=== PATIENT | female | born 1965 | race Caucasian/White ===

== ENCOUNTER → 2021-07-10 10:06 | Outpatient (BNVA) | payer OTHER, SELFPAY | PROVIDERS: Visit Provider Nurse Practitioner Family | DX: M96.1 Postlaminectomy syndrome, not elsewhere classified (principal); M25.562 Pain in left knee; M25.561 Pain in right knee; M47.27 Other spondylosis with radiculopathy, lumbosacral region; M79.7 Fibromyalgia; M53.3 Sacrococcygeal disorders, not elsewhere classified; Z83.3 Family history of diabetes mellitus; Z82.49 Family history of ischemic heart disease and other diseases of the circulatory system; Z88.6 Allergy status to analgesic agent; Z91.012 Allergy to eggs | CPT/HCPCS: 99202 ==

== ENCOUNTER → 2021-08-07 10:29 | Outpatient (BNVA) | payer OTHER, SELFPAY | PROVIDERS: PCP Internal Medicine; Visit Provider Nurse Practitioner Family | DX: M96.1 Postlaminectomy syndrome, not elsewhere classified (principal); M25.569 Pain in unspecified knee; M47.27 Other spondylosis with radiculopathy, lumbosacral region; M53.3 Sacrococcygeal disorders, not elsewhere classified | CPT/HCPCS: 99212 ==

== ENCOUNTER 2022-08-09 12:09 | Emergency (ER) | payer OTHER, SELFPAY ==
--- NOTE | ~2022-08-09 | CT_ITS ---
EXAMINATION: CT PELVIS WITH CONTRAST CLINICAL INFORMATION: Left buttock mass COMPARISON: Previous CT of the abdomen and pelvis February 2019 TECHNIQUE: Helical scanning was performed with submillimeter collimation through the pelvis with the use of oral contrast and during bolus intravenous injection of 85 mL of Omnipaque 350 intravenous contrast. Sagittal and coronal multiplanar 2-D reconstructions were obtained. This CT examination was performed using dose optimization techniques as appropriate, variously including the following: *Automated exposure control *Adjustment of mA and/or kV according to patient size (this includes techniques or standardized protocols for targeted exams where dose is matched to indication/reason for exam; i.e. extremities or head) *Use of iterative reconstruction technique DLP: 331 mGy-cm FINDINGS: PELVIS: There is a superficial 6 cm fluid collection in the left buttock containing a small amount of air. There are adjacent surgical clips and postsurgical changes to the left buttock. There is stranding of the surrounding fat. This is a new finding from 2019 exam. Visualized small and large bowel is normal. The appendix is normal. The bladder is not optimally distended. Uterus appears to have been removed. No pelvic mass. No ascites or adenopathy. Vascular structures are normal. No hernia. Postsurgical changes to the anterior abdominal wall. OSSEOUS STRUCTURES: There are postsurgical changes following vertebral body and posterior element fusion at L5-S1. There is degenerative disc disease at L4-L5. There are degenerative changes at the hip joints. No fracture or bone lesion. CT/CT pelvis w IV con IMPRESSION: Superficial 6 cm complex cystic lesion in the left buttock. This contains a small amount of air. Differential would include abscess or liquefying hematoma and postsurgical change.
[2022-08-09 12:28] VITALS: BP 144/90; PULSE 111; RESP 18; TEMP 36.7; O2SAT 98; BMI 37.1
--- NOTE | 2022-08-09 12:35 | ED.GENADULT ---
HPI - General Adult General Chief complaint: General Medical Stated complaint: mass on L cheek. burning, pain Time Seen by Provider: 08/09/22 12:34 Source: patient Mode of arrival: ambulatory Limitations: no limitations History of Present Illness HPI narrative: 57-year-old female who presents emergency department for evaluation of left buttocks pain and swelling. Patient states that July 17 she had a lump on her right medial calf and also had a lump in her left buttocks area. She denies any injury or trauma. She states that the bump on her calf resolved and got smaller but the bump on her left hip has gotten larger and more painful. She states that she has had occasional fever and chills. She denied sore throat, cough, chest pain, shortness of breath, nausea, vomiting, myalgias, arthralgias or weakness. The patient states that she has had no procedures or surgeries on her hip however she did have a gastric bypass surgery and liposuction/abdominal plasty.. Related Data Home Medications Medication Instructions Recorded Confirmed acetaminophen 500 mg tablet 500 mg PO Q6H PRN 07/10/21 08/07/21 alprazolam 1 mg tablet (Xanax) 1 mg PO TID PRN 07/10/21 08/07/21 citalopram 40 mg tablet 40 mg PO DAILY 07/10/21 08/07/21 cyanocobalamin (vitamin B-12) 50 50 mcg PO DAILY 07/10/21 08/07/21 mcg tablet dicyclomine 20 mg tablet 20 mg PO ONCE 07/10/21 08/07/21 famotidine 40 mg tablet 40 mg PO DAILY 07/10/21 08/07/21 hydroxyzine pamoate 50 mg capsule 50 mg PO BEDTIME 07/10/21 08/07/21 levothyroxine 88 mcg tablet 88 mcg PO DAILY 07/10/21 08/07/21 loperamide 2 mg capsule 4 mg PO Q6H PRN 07/10/21 08/07/21 montelukast 10 mg tablet 10 mg PO BEDTIME 07/10/21 08/07/21 multivitamin 1 tab PO DAILY 07/10/21 08/07/21 ondansetron HCl 4 mg tablet 4 mg PO Q6H 07/10/21 08/07/21 tizanidine 4 mg tablet 4 mg PO BEDTIME PRN 07/10/21 08/07/21 topiramate 100 mg tablet 100 mg PO DAILY 07/10/21 08/07/21 trazodone 50 mg tablet 100 mg PO DAILY PRN 07/10/21 08/07/21 Previous Rx's Medication Instructions Recorded cephalexin 500 mg capsule 500 mg PO QID 7 days #28 caps 08/09/22 doxycycline hyclate 100 mg tablet 100 mg PO Q12H 7 days #14 tabs 08/09/22 oxycodone 5 mg tablet 5 mg PO Q6H PRN pain #14 tabs 08/09/22 Allergies Allergy/AdvReac Type Severity Reaction Status Date / Time egg [EGG] Allergy Unknown HIVES/ITCHI Verified 08/07/21 10:36 NG morphine [MORPHINE] Allergy Unknown SKIN RED Verified 08/07/21 10:36 Morphine Sulfate Allergy Unknown unk Uncoded 08/07/21 10:36 Tramadol HCl Allergy Unknown unk Uncoded 08/07/21 10:36 Review of Systems Review of Systems: Yes all other systems are reviewed and are negative [facility] Past Medical History [facility] Narrative: Social history: She denies tobacco, alcohol and drug use. Surgical History (Updated 07/10/21 @ 10:17 by HAZEL Fitzgerald) History of abdominoplasty History of back surgery History of left cataract surgery History of partial hysterectomy History of right cataract surgery Hx of cholecystectomy Hx of gastric bypass Family History Family History (Updated 07/10/21 @ 10:20 by HAZEL Fitzgerald) Mother Diabetes Asthma Hypertension Glaucoma Heart problem Father Liver cirrhosis Social History Social History (Updated 07/10/21 @ 10:21 by HAZEL Fitzgerald) Household Members: Children Household Members Other:: 2 sons Alcohol intake: never Patient Tobacco Use Status: Never used Tobacco Advance Directives: No Advance Directives Information Provided: No Patient : No Physical Exam ED Vital Signs: Vital Signs - 24 hr 08/09/22 12:28 08/09/22 16:54 Temperature 98.1 F 98.2 F Pulse Rate 111 H 85 Respiratory Rate 18 20 Blood Pressure 144/90 H 99/61 Pulse Oximetry 98 98 Oxygen Delivery Method Room Air Room Air BMI result Body Mass Index 37.1 Const General: cooperative and no acute distress Orientation/consciousness: oriented to person and oriented to place Limitations: no limitations HENMT Head: Yes normal to inspection, Yes normocephalic and Yes atraumatic Ears: external ears normal General nose exam: Normal external nose present Face and sinus: Yes normal facial exam Mouth: Normal oral and palatal mucosa present Throat: Yes posterior oropharynx normal Eyes General: appearance normal, both eyes and all related structures Pupils: Equal, round and reactive pupils present Neck Neck: Yes normal visual inspection, Yes no lymphadenopathy, Yes trachea midline and Yes supple Chest Chest palpation & inspection: normal inspection of the chest and normal palpation of entire chest wall Resp Effort & Inspection: normal respiratory effort and able to speak in complete sentences Auscultation: clear to auscultation bilaterally Cardio Rate: regular rate Rhythm: regular rhythm Heart sounds: S1 normal heart sound present, S2 normal heart sound present and no murmurs GI Inspection: Yes normal to inspection Palpation (GI): Soft to palpation, nontender and no guarding Auscultation: normal bowel sounds General: Yes no CVA tenderness Back/Spine/Pelvis Back: no CVA tenderness Skin General skin exam: no rashes or lesions noted Neuro General: oriented to person and oriented to place Cranial nerves: Yes CN's II-XII intact bilaterally and Yes Equal, round and reactive pupils present Cognition (Neuro): normal cognition Motor exam (neuro): 5/5 motor strength present throughout Extrem Other: Patient's left lateral hip area revealed a 7 x 5 cm mass which was tender to palpation, the mass feels like a lipoma, there is no induration or flocculence, but overlying skin is normal in appearance with no erythema or increased warmth. Psych Appearance: grossly normal Speech and movement: Normal speech and movement present Affect: normal affect Attitude: cooperative Thought process: Normal thought process present Thought content: Normal thought content present Course Course Course Narrative: 55-year-old female who presents emergency department for evaluation of painful left buttocks/lateral hip mass which she 1st noticed on 07/17/2022, approximately 3 weeks prior to evaluation. She had no trauma or surgical procedure to this area. She states she has had subjective fever and chills but otherwise had no other systemic symptoms. Patient's laboratory evaluate revealed a normal WBC [address] scan of the pelvis with IV contrast radiology reading as follows: IMPRESSION: Superficial 6 cm complex cystic lesion in the left buttock. This contains a small amount of air. Differential would include abscess or liquefying hematoma and postsurgical change. Dictated By:Brynn Ortiz MDSigned By:<Electronically signed by Brynn Ortiz MD in OV>08/09/22 [id number] I did discuss this reading with the covering surgeon, Dr. Hyman. He felt that this was most likely a hematoma and recommended that we try to drain some fluid from the mass. I was able to get approximately 15 cc of hemorrhagic fluid which was sent for Gram stain and culture. The patient will be started on doxycycline and Keflex and also advised to take Tylenol for pain. He was prescribed oxycodone as well for pain not relieved by Tylenol. Patient was advised to contact Dr. Hyman was office for follow-up next week. Medications Administered Discontinued Medications Generic Name Dose Route Start Last Admin Trade Name Freq PRN Reason Stop Dose Admin Hydromorphone HCl 0.5 mg 08/09/22 16:42 08/09/22 16:57 Hydromorphone Hcl 0.5 Mg/0.5 Ml Syringe IVPUSH 08/09/22 16:43 0.5 mg ONCE ONE Administration Protocol Sodium Chloride 1,000 mls @ 999 mls/hr 08/09/22 13:10 08/09/22 16:50 Ns IV 08/09/22 14:10 Infused .Q1H1M STA Infusion Iohexol 100 ml 08/09/22 14:05 08/09/22 14:06 Iohexol 350 Mg/Ml 100 Ml Infus..Btl IV 08/09/22 14:06 85 ml ONCE ONE Administration Ketorolac Tromethamine 30 mg 08/09/22 13:10 08/09/22 13:22 Ketorolac Tromethamine 15 Mg/Ml Vial IVPUSH 08/09/22 13:11 30 mg ONCE STA Administration Procedures Procedure Narrative Procedure Narrative: Needle aspiration of left hip/buttocks mass: I did discuss the procedure with the patient and she did give me informed verbal consent to proceed. The patient's left hip was prepped with Betadine, the that was located using ultrasound, the mass is approximately 2 cm deep. Patient's skin was anesthetized with 1% lidocaine with epinephrine, 4 cc was used Using an 18 gauge spinal needle I was able to easily enter the mass and withdrew 15 cc hemorrhagic fluid. This was the maximum amount but was able to be extracted. The needle was withdrawn and the puncture site was covered with a bandage. Patient tolerated the procedure well. Medical Decision Making Medical Decision Making Differential Diagnoses: Differential diagnosis (Abscess, hematoma, lipoma, lymphoma, neoplasm) Consideration of admission/observation: Consideration of Admission/Observation (Yes) Discussion of management with other physician/healthcare provider/other source (e.g., hospitalist, architectural sales consultant, behavioral health): Discussion w/other physician/healthcare provider (Dr. Hyman, covering surgeon) My interpretation is Lab Attestation: I reviewed the patient's lab results. (Please see course discussion) Non-ED record review: Review of External (Non-ED) Record ([place] database reviewed) Discharge Plan Discharge Clinical Impression: Hematoma Patient Disposition: Home, Self-Care Additional Instructions: The CT scan of your left pelvis/hip did reveal a complex mass which had fluid, air and complex material in it. I was able to aspirate blood suggested that this may be a hematoma. The fluid that I pulled out of the mass was sent for culture to see if we can grow any bacteria out of this mass. Take Tylenol (acetaminophen) 500 mg pills, 2 pills every 4-6 hours as needed for pain. For pain not relieved byr Tylenol take oxycodone 5 mg pills, 1 pill every 4 hours as needed for pain. Do not drive or work while taking this medication since they can cause sleepiness. Oxycodone is a narcotic medication that can be addicting. If you are concerned about addiction you can ask the pharmacist for less pills or do not get this prescription filled. Take doxycycline 100 mg, 1 pill every 12 hours for 7 days Take Keflex (cephalexin) 500 mg pills, 1 pill 3 times a day for 7 days. Follow-up with our surgeon on-call, Dr. Hyman. Call his office on Thursday morning, he should see you next week for re-evaluation. Please return to the emergency department if your symptoms get worse or if you develop any symptoms that are concerning to you. Prescriptions: New cephalexin 500 mg capsule 500 mg PO QID 7 Days Qty: 28 0RF doxycycline hyclate 100 mg tablet 100 mg PO Q12H 7 Days Qty: 14 0RF oxycodone 5 mg tablet 5 mg PO Q6H PRN (Reason: pain) Qty: 14 0RF Rx Instructions: Patient may request partial refill; Partial Fill upon patient request. No Action acetaminophen 500 mg tablet 500 mg PO Q6H PRN Rx Instructions: take 2 tabs by mouth every 6 hours as needed for pain citalopram 40 mg tablet 40 mg PO DAILY cyanocobalamin (vitamin B-12) 50 mcg tablet 50 mcg PO DAILY multivitamin Tablet 1 tab PO DAILY dicyclomine 20 mg tablet 20 mg PO ONCE famotidine 40 mg tablet 40 mg PO DAILY hydroxyzine pamoate 50 mg capsule 50 mg PO BEDTIME levothyroxine 88 mcg tablet 88 mcg PO DAILY loperamide 2 mg capsule 4 mg PO Q6H PRN montelukast 10 mg tablet 10 mg PO BEDTIME ondansetron HCl 4 mg tablet 4 mg PO Q6H tizanidine 4 mg tablet 4 mg PO BEDTIME PRN topiramate 100 mg tablet 100 mg PO DAILY trazodone 50 mg tablet 100 mg PO DAILY PRN alprazolam [Xanax] 1 mg tablet 1 mg PO TID PRN Referrals: Rogerio Rivera MD [Emergency Provider] - Filipe Hyman MD [Physician] - 5 days (Left hip/buttocks complex mass, most likely hematoma. Needle aspiration of hemorrhagic fluid sent for Gram stain and culture. Needs follow-up to determine if this complex mass needs further surgical treatment.)
[2022-08-09] MEDS: 0.9 % Sodium Chloride 1,000 ML 999 ML IV (13:22)
[2022-08-09] MEDS: Ketorolac Tromethamine 15 MG/ML VIAL 30 MG IVPUSH (13:22)
[2022-08-09 13:27] LABS: MANUAL DIFF FLAG NO
[2022-08-09 13:29] LABS: Basophils Percent Auto 0.3 % (0-2); Eosinophils Absolute Auto 0.1 X10*3/uL (0.0-0.4); Eosinophils Percent Auto 1.5 % (0-4); Hematocrit 35.7 % (37.0-47.0); Hemoglobin 11.9 g/dl (12.0-16.0); Imm Gran Abs Auto 0.02 X10*3/uL (0.00-0.03); Imm Gran Pct Auto 0.3 % (0.0-0.4); Lymphocytes Absolute Auto 1.5 X10*3/uL (1.2-4.9); Lymphocytes Percent Auto 19.3 % (20-40); Mean Corpuscular HGB Conc 33.3 g/dl (31.0-35.0); Mean Corpuscular Hemoglobin 28.7 pg (27.0-33.0); Mean Platelet Volume 10.1 fL (9.4-12.3); Monocytes Absolute Auto 0.6 X10*3/uL (0.1-1.2); Monocytes Percent Auto 8.1 % (2-11); Neutrophils Absolute Auto 5.6 x10*3/uL (2.0-8.3); Neutrophils Percent Auto 70.5 % (45-73); Platelet Count 188 X10*3/uL (160-400); Red Blood Count 4.15 X10*6/uL (4.20-5.50); Red Cell Distribution Width 12.9 % (11.0-16.0); White Blood Count 7.9 X10*3/uL (4.8-10.8)
[2022-08-09 13:40] LABS: INTERNATIONAL NORM RATIO 1.2 (0.9-1.1); Prothrombin Time 13.5 SEC (10.0-13.1)
[2022-08-09 13:42] LABS: Alanine Aminotransferase < 6 U/L (0-31); Alkaline Phosphatase 153 U/L (39-117); Anion Gap 15 (12-20); Aspartate Amino Transferase 9 U/L (5-31); Bilirubin Total 0.5 mg/dL (0.0-1.0); Blood Urea Nitrogen 15 mg/dL (9-16); Carbon Dioxide 21 mmol/L (22-29); Chloride 107 mmol/L (96-108); Creatinine Clr Calc Pharmacy 43.9; Estimated Glomerular Filt Rate 42; Glucose Random 130 mg/dL (60-115); Potassium 3.7 mmol/L (3.3-5.1); Sodium 139 mmol/L (135-145); Total Protein 7.5 g/dL (6.5-8.0)
[2022-08-09 13:43] LABS: Partial Thromboplastin Time 25.9 SEC (26.0-36.4)
[2022-08-09] MEDS: iohexoL 350 MG/ML 100 ML INFUS..BTL IV (14:06)
--- NOTE | 2022-08-09 15:15 | PC.NURSE ---
patient assessed with use of with use of medical affairs specialist . primary language Tu[place] . a/ox4 . perrla . heart rate regular at 98 beats per minute . breathing even and unlabored . lungs clear throughout . skin pink warm and dry . mass located on left upper buttocks , raised . patient reports 10 out of 10 pain when palpated . IV placed in left A.C . labs obtained and set . normal started as ordered . patient sent to C.[facility] for images . patient aware of plan of care .
[2022-08-09 16:54] VITALS: BP 99/61; PULSE 85; RESP 20; TEMP 36.8; O2SAT 98
[2022-08-09] MEDS: HYDROmorphone HCl 0.5 MG/0.5 ML SYRINGE IVPUSH (16:57)
--- NOTE | 2022-08-09 16:58 | PC.NURSE ---
patient medicated with 0.5mg of diliuded IVP for 10 out 10 pain level r/t left buttock pain . patient aware of plan of care .
[2022-08-09] MEDS: Doxycycline Monohydrate 100 MG CAPSULE PO (17:55)
[2022-08-09] MEDS: cephALEXin 500 MG CAPSULE PO (17:55)
--- NOTE | 2022-08-09 19:06 | PC.NURSE ---
patient a/ox4 . VSS . went over discharge instructions with the use of sales strategy manager . patient to return if symptoms worsen no questions at this time .
== END 2022-08-09 19:08 | disposition home or self-care (01) ==
PROVIDERS: Emergency Provider Emergency Medicine Emergency Medical Services; PCP Internal Medicine
DX: R22.42 Localized swelling, mass and lump, left lower limb (principal)
CPT/HCPCS: 10140; 36415; 72193; 80053; 85025; 85610; 85730; 87070; 87073; 87077; 87186; 87205; 96361; 96374; 96375; 99284; J1170; J1885; Q9967

== ENCOUNTER → 2022-08-14 08:32 | Outpatient (BNVA) | payer OTHER, SELFPAY | PROVIDERS: PCP Internal Medicine; Visit Provider Surgery | DX: L02.91 Cutaneous abscess, unspecified (principal); E66.9 Obesity, unspecified; Z68.39 Body mass index [BMI] 39.0-39.9, adult | CPT/HCPCS: 10061; 10140; 99202 ==

== ENCOUNTER → 2022-08-21 11:41 | Outpatient (BNVA) | payer OTHER, SELFPAY | PROVIDERS: PCP Internal Medicine; Referring Provider Internal Medicine; Visit Provider Physician Assistant Surgical | DX: L02.416 Cutaneous abscess of left lower limb (principal) | CPT/HCPCS: 99212 ==

== ENCOUNTER 2022-08-27 07:23 | Day surgery (SDC) | payer OTHER, SELFPAY ==
[2022-08-27] VITALS (18 sets, daily range): BP systolic 96–171; BP diastolic 57–85; PULSE 67–103; RESP 16–20; TEMP 36.3–36.6; O2SAT 96–100; BMI 38.5
[2022-08-27] MEDS: Lactated Ringers 1,000 ML 100 ML IVCONT (08:01)
--- NOTE | 2022-08-27 08:51 | HO.ANESPROP2 ---
HPI - Anesthesia Eval Consult details Narrative: 57yo female patient for evacuation of hematoma Left hip PMFSH Active Problems Active Problems: All Active Problems (Updated 08/21/22 @ 14:45 by Rachell Miranda PA-C) Hematoma of left hip (Acute) Abscess (Acute) Sacroiliac joint pain (Acute) Spondylosis of lumbosacral spine with radiculopathy (Acute) Knee pain (Acute) Postlaminectomy syndrome, lumbar (Acute) Increased BMI Past Medical History Medical History Asthma History of anxiety Family History Family History Mother Diabetes Asthma Hypertension Glaucoma Heart problem Father Liver cirrhosis Family history of problems with anesthesia: No Surgical History Surgical History History of abdominoplasty History of back surgery History of left cataract surgery History of partial hysterectomy History of right cataract surgery Hx of cholecystectomy Hx of gastric bypass History of Problems with Anesthesia: No Social History Social History Household Members: Children Household Members Other:: 2 sons Alcohol intake: never Patient Tobacco Use Status: Never used Tobacco Are you DNR?: No Advance Directives: No Advance Directives Information Provided: Yes Recently lost weight without trying: No Nutrition Risks: No Nutritional Risk Patient : No Meds Allergies Allergy/AdvReac Type Severity Reaction Status Date / Time tramadol Allergy Mild Itching Verified 08/26/22 08:56 morphine [MORPHINE] Allergy Unknown SKIN RED Verified 08/21/22 13:03 Active Medications: Current Medications Fentanyl (Fentanyl Citrate/Pf 100 Mcg/2 Ml Vial) 25 mcg IVPUSH Q5M PRN; Protocol PRN Reason: Pain, Moderate (Pain Scale 4-6 Lactated Ringer's (Lr) 1,000 mls @ 100 mls/hr IVCONT .Q10H [place] Last Admin: 08/27/22 08:01 Dose: 100 mls/hr Promethazine HCl 12.5 mg/ (Sodium Chloride) 50.5 mls @ 202 mls/hr IV ONCE PRN PRN Reason: Nausea and Vomiting Ondansetron HCl (Ondansetron Hcl 4 Mg/2 Ml Vial) 4 mg IVPUSH ONCE PRN PRN Reason: Nausea and Vomiting Oxycodone HCl (Oxycodone Hcl Immed Release 5 Mg Tablet) 5 mg PO ONCE PRN PRN Reason: Pain, Severe (Pain Scale 7-10) Home Medications Medication Instructions Recorded Confirmed Last Taken Type acetaminophen 500 mg tablet 500 mg PO Q6H PRN 07/10/21 08/21/22 Unknown History alprazolam 1 mg tablet (Xanax) 1 mg PO TID PRN 07/10/21 08/21/22 Unknown History citalopram 40 mg tablet 40 mg PO DAILY 07/10/21 08/21/22 Unknown History cyanocobalamin (vitamin B-12) 50 50 mcg PO DAILY 07/10/21 08/21/22 Unknown History mcg tablet dicyclomine 20 mg tablet 20 mg PO ONCE 07/10/21 08/21/22 Unknown History famotidine 40 mg tablet 40 mg PO DAILY 07/10/21 08/21/22 Unknown History hydroxyzine pamoate 50 mg capsule 50 mg PO BEDTIME 07/10/21 08/21/22 Unknown History loperamide 2 mg capsule 4 mg PO Q6H PRN 07/10/21 08/21/22 Unknown History montelukast 10 mg tablet 10 mg PO BEDTIME 07/10/21 08/21/22 Unknown History multivitamin 1 tab PO DAILY 07/10/21 08/21/22 Unknown History ondansetron HCl 4 mg tablet 4 mg PO Q6H 07/10/21 08/21/22 Unknown History tizanidine 4 mg tablet 4 mg PO BEDTIME PRN 07/10/21 08/21/22 Unknown History topiramate 100 mg tablet 100 mg PO DAILY 07/10/21 08/21/22 Unknown History trazodone 50 mg tablet 100 mg PO DAILY PRN 07/10/21 08/21/22 Unknown History albuterol sulfate 2.5 mg/3 mL mg inhalation 08/14/22 08/21/22 Unknown History (0.083 %) solution for nebulization levothyroxine 112 mcg tablet mcg PO 08/14/22 08/21/22 08/27/22 History Exam Exam Date and Time: August 27, 2022 0851 Height,Weight and Vital Signs: Height 4 ft 9 in Weight 80.739 kg Last Vital Signs Temp 98 F 08/27/22 07:28 Pulse 100 08/27/22 07:28 Resp 20 08/27/22 07:28 BP 130/85 08/27/22 07:28 Pulse Ox 97 08/27/22 07:28 O2 Del Method 08/27/22 07:28 Airway Mallampati Class: II TM Dist: >3cm Neck ROM: Full Denture: Upper and Lower Loose/Missing/Broken Teeth: Yes (Edentulous) Heart: RRR Lungs: CTAB Assessment and Plan Assessment Anesthesia Assessment: Anesthesia Plan Discussed and Chart Reviewed Final Anesthetic Review Family History of Problems with Anesthesia: No History of Problems with Anesthesia: No NPO: Yes ASA Class: III Final Preanesthetic Review: No Changes in Pt Med Stat, Meds/Allgs Chart Reviewed, Consent Obtained/Reviewed and Anes Risks/Benef Reviewed Patient Risk: Intermediate Procedure Risk: Low Assessment/Block/Sedation in SS: Assess/Block/Sedation-SS Anesthetic Plan Anesthetic Plan: GA Disposition: Standard PACU
--- NOTE | 2022-08-27 09:05 | P.HPSUR_ITS ---
Pre-Procedural Eval Section A Date of Service: 08/27/22 The patient is an INPATIENT: No Changes since office visit: Yes Patient answered all questions; No Cold of Flu in the past 2 weeks, No New Medical Problems and No Changes in Medication The History & Physical has been completed within 30 days and I have reviewed it.: Yes Section B Chief Complaint: Contusion of left hip, initial encounter Allergies: Allergies Allergy/AdvReac Type Severity Reaction Status Date / Time tramadol Allergy Mild Itching Verified 08/26/22 08:56 morphine [MORPHINE] Allergy Unknown SKIN RED Verified 08/21/22 13:03 Plan Diagnosis/Plan: Unchanged I have reviewed the history and physical and performed a pertinent physical examination on my patient. No changes have occurred unless specified. I further reviewed the procedure, risks, and alternatives with the patient with the assistance of a senior software quality engineer. She expressed understanding and consents to evacuation the left hip hematoma. Time Spent With Patient Time: Total time managing care of this patient today ___10_ minutes.
--- NOTE | 2022-08-27 09:57 | P.OP_ITS ---
Operative Note Operative Note Date of Service: 08/27/22 Narrative: Preoperative diagnosis: Hematoma left hip Postoperative diagnosis: hematoma and abscess left hip Procedure: excision of left hip hematoma and abscess Surgeon: Filipe Hyman MD Training And Development Coordinator: Rachell Miranda PA-C Anesthesia: general LMA Indications for procedure: 57-year-old female patient with a nontraumatic hematoma of the left hip subcutaneous tissue previously evaluated emergency department with CT pelvis. This revealed a large fluid collection in the subcutaneous tissue above the left hip felt to be hematoma. Needle aspiration confirmed dark blood suggestive of an old hematoma. She presents now for excision of this persistent hematoma due to persistent pain. Operative findings: 6 x 9 cm firm collection in the subcutaneous tissue over the left hip which contain both old blood and infected hematoma. Specimen: Left hip abscess /hematoma collection. Estimated blood loss: 10 mL Complications: none Procedure details: patient was brought to the OR placed in a supine position. After administering general anesthesia the patient was rotated to a partial lateral position and secured with pillows. Patient's left hip was prepped with ChloraPrep and draped in a sterile fashion. A surgical time-out was called the consent confirmed. Patient received preoperative antibiotics and Venodyne boots were in place. Local anesthesia consisting of 0.5% Sensorcaine with epinephrine was then infiltrated in elliptical incision around the previous drainage site. Electrocautery was then used to dissect the palpable mass circumferentially which as noted above measured approximately 9 x 6 cm. This completely within the subcutaneous tissue. During the procedure the cavity was entered and purulent, infected hematoma was identified. Cultures were obtained. The lesion was completely excised and sent to pathology for further examination. The wounds were then thoroughly irrigated with approximately 1 L of fluid. Wounds were checked for hemostasis using electrocautery. Deep subcutaneous tissue was then reapproximated with a Lindsey's fascia using interrupted 3-0 Polysorb sutures. Dermis was then reapproximated using interrupted 3-0 Polysorb sutures. Skin was closed with 3-0 nylon suture. Sterile dressings were then applied. The patient tolerated the procedure well. Sponge, instrument and needle counts reported as correct. Patient was transferred to PACU in stable condition.
[2022-08-27] MEDS: oxyCODONE HCl Immed Release 5 MG TABLET PO (10:27)
[2022-08-27] MEDS: fentaNYL citrate/PF 100 MCG/2 ML VIAL 25 MCG IVPUSH ×4 (10:37→11:26)
[2022-08-27] MEDS: Acetaminophen 1,000 MG/100 ML PIGGYBACK 400 MG IV (11:31)
[2022-08-27] MEDS: ondansetron HCL 4 MG/2 ML VIAL IVPUSH (11:47)
== END 2022-08-27 12:53 | disposition home or self-care (01) ==
PROVIDERS: PCP Internal Medicine; Visit Provider Surgery
PROC: (CPT 27043; principal; 2022-08-27 09:10)
DX: M79.81 Nontraumatic hematoma of soft tissue (principal); M71.052 Abscess of bursa, left hip; M25.552 Pain in left hip; J45.909 Unspecified asthma, uncomplicated; F41.1 Generalized anxiety disorder; Z79.899 Other long term (current) drug therapy; Z88.8 Allergy status to other drugs, medicaments and biological substances; Z98.84 Bariatric surgery status; Z90.49 Acquired absence of other specified parts of digestive tract
CPT/HCPCS: 27043; 87070; 87077; 87186; 87205; 88305; J0131; J0690; J1100; J2250; J2405; J3010

== ENCOUNTER → 2022-09-09 15:41 | Outpatient (BNVA) | payer OTHER, SELFPAY | PROVIDERS: PCP Internal Medicine; Visit Provider Surgery | DX: Z13.89 Encounter for screening for other disorder (principal) ==

== ENCOUNTER → 2022-09-18 11:12 | Outpatient (BNVA) | payer OTHER, SELFPAY | PROVIDERS: PCP Internal Medicine; Visit Provider Physician Assistant Surgical | DX: S70.02XA Contusion of left hip, initial encounter (principal); A41.53 Sepsis due to Serratia; X58.XXXA Exposure to other specified factors, initial encounter; Y93.9 Activity, unspecified; Y92.9 Unspecified place or not applicable; Y99.8 Other external cause status | CPT/HCPCS: 99212 ==

== ENCOUNTER → 2022-09-25 10:43 | Outpatient (BNVA) | payer OTHER, SELFPAY | PROVIDERS: PCP Internal Medicine; Referring Provider Internal Medicine; Visit Provider Physician Assistant Surgical | DX: S70.02XD Contusion of left hip, subsequent encounter (principal) | CPT/HCPCS: 99212 ==

== ENCOUNTER → 2022-10-14 13:32 | Outpatient (BNVA) | payer OTHER, SELFPAY | PROVIDERS: PCP Internal Medicine; Visit Provider Surgery | DX: Z13.89 Encounter for screening for other disorder (principal) ==

== ENCOUNTER → 2023-01-29 14:51 | Outpatient (BNVA) | payer OTHER, SELFPAY | PROVIDERS: PCP Internal Medicine; Referring Provider Internal Medicine; Visit Provider Surgery | DX: I87.2 Venous insufficiency (chronic) (peripheral) (principal) | CPT/HCPCS: 99212 ==

== ENCOUNTER 2023-02-10 10:36 | Outpatient (REF) | payer OTHER, SELFPAY ==
--- NOTE | ~2023-02-10 | US_ITS ---
EXAMINATION: US VENOUS BILATERAL LOWER EXTREMITIES (REFLUX EXAM) CLINICAL INDICATION: Leg pain and varicose veins. COMPARISON: None available TECHNIQUE: Color flow triplex imaging and compression Doppler was performed to evaluate both the deep and the superficial systems bilaterally. To evaluate the superficial system, the examination was performed in the upright position. Color-flow Doppler ultrasound and compression ultrasound were utilized. In addition, maneuvers were utilized to demonstrate reflux. FINDINGS: 1. DEEP VENOUS ULTRASOUND OF THE RIGHT LOWER EXTREMITY: Respiratory variation, normal compression and augmented flow are noted in the right common femoral vein as well as the right popliteal vein and there is no evidence of deep venous thrombosis at these locations. There is no evidence of reflux in the deep system in either the common femoral vein or the popliteal vein. There is a medial Morrison's cyst measuring 1.1 x 0.4 x 0.4 cm. There are some soft tissue lumps present in the proximal medial calf which appear to have echogenicity as fat consistent with lipomas with the largest measuring 9 mm. 2. SUPERFICIAL ULTRASOUND WITH DOPPLER OF RIGHT LOWER EXTREMITY: The right great saphenous vein at the saphenofemoral junction measures 7 mm, at the proximal thigh 4 mm, at the mid thigh 3 mm, above the knee 2 mm, at the knee 3 mm, [id number] 2 mm, midcalf 2 mm and at the ankle measures 1 mm. There is no reflux demonstrated in the right great saphenous vein. Duplicated Right Great Saphenous Vein: There is a medial accessory saphenous measuring 3 mm and a lateral accessory saphenous measuring 4 mm. Neither reflux. The right small saphenous vein measures 2 mm and shows no reflux. Accessory Vein of Giacomini: None Incompetent Perforators: None Varices Present: None 3. DEEP VENOUS ULTRASOUND OF THE LEFT LOWER EXTREMITY: Respiratory variation, normal compression and augmented flow are noted in the left common femoral vein as well as the left popliteal vein and there is no evidence of deep venous thrombosis at these locations. There is no evidence of reflux in the deep system in either the common femoral vein or the popliteal vein. There is no evidence of a Morrison's cyst. 4. SUPERFICIAL ULTRASOUND WITH DOPPLER OF LEFT LOWER EXTREMITY: Left great saphenous vein at the saphenofemoral junction measures 7 mm, at the proximal thigh 2 mm, at the mid thigh 3 mm, above the knee 2 mm, at the knee 2 mm, [id number] 1 mm, midcalf 1 mm and at the ankle measures 1 mm. There is no reflux demonstrated in the left great saphenous vein. Duplicated Left Great Saphenous Vein: There is a 3 mm lateral accessory saphenous that does not reflux. The left small saphenous vein was not seen. Accessory Vein of Giacomini: None Incompetent Perforators: None. Varices Present: None US/US venous duplex LE BI IMPRESSION: 1. No evidence of reflux or thrombus in the common femoral veins or popliteal veins bilaterally. 2. The saphenous systems are competent bilaterally, but the small saphenous on the left is not seen.
== END 2023-02-10 10:37 | disposition home or self-care (01) ==
LOC: HO.US 10:36
PROVIDERS: PCP Internal Medicine; Visit Provider Surgery
DX: I87.2 Venous insufficiency (chronic) (peripheral) (principal)
CPT/HCPCS: 93970

== ENCOUNTER 2023-03-12 14:42 | Outpatient (AMB) | payer OTHER, SELFPAY ==
--- NOTE | 2023-03-12 15:01 | MHC.OFFVIS ---
Intake Vital Signs 03/12/23 15:04 Height 4 ft 9 in Weight 180 lb 2 oz BMI 39.0 BP 131/81 Blood Pressure Location Lt brachial Position Sitting Pulse 89 Intake Visit Reasons: US results, b/l leg pain Intake Note: Patient is seen in office for ultrasound results, following bilateral leg pain. Patient c/o: continued pain, numbness, cramps, and bruising of both legs, here for ultrasound results Hand Roller Required: Yes Hand Roller Language: Case Operator Name: Maxine OLIVA Information Interpreted: non-clinical & clinical Contact Acid Plant Operator: Contact Acid Plant Operator Present Accompanied by: Other Relationship Allergies tramadol Allergy (Mild, Verified 03/12/23 15:03) Itching morphine [MORPHINE] Allergy (Unknown, Verified 03/12/23 15:03) SKIN RED Medication List - Last Reconciled 03/13/23 by Filipe Hyman MD acetaminophen 500 mg PO Q6H PRN albuterol sulfate mg inhalation alprazolam (Xanax) 1 mg PO TID PRN citalopram 40 mg PO DAILY cyanocobalamin (vitamin B-12) 50 mcg PO DAILY dicyclomine 20 mg PO ONCE famotidine 40 mg PO DAILY hydroxyzine pamoate 50 mg PO BEDTIME levothyroxine mcg PO loperamide 4 mg PO Q6H PRN montelukast 10 mg PO BEDTIME multivitamin 1 tab PO DAILY ondansetron HCl 4 mg PO Q6H sulfamethoxazole-trimethoprim 800-160 mg (Bactrim DS) 1 tab PO Q12H tizanidine 4 mg PO BEDTIME PRN topiramate 100 mg PO DAILY trazodone 100 mg PO DAILY PRN HPI HPI Comments History of Present Illness Details 57-year-old female patient returning for re-evaluation of bilateral lower extremity bruising and palpable lumps. She continues to report the same symptoms without significant change. She recently underwent Doppler ultrasound venous studies to evaluate for venous reflux. The studies revealed no evidence of venous reflux in either leg and no DVT to explain her leg symptoms. A copy of the report was provided to the patient. [facility] Medical History Asthma History of anxiety Surgical History History of abdominoplasty History of back surgery History of left cataract surgery History of local excision of skin lesion (08/27/22) History of partial hysterectomy History of right cataract surgery Hx of cholecystectomy Hx of gastric bypass Family History Mother Diabetes Asthma Hypertension Glaucoma Heart problem Father Liver cirrhosis Social History Household Members: Children Household Members Other:: 2 sons Alcohol intake: never Patient Tobacco Use Status: Never used Tobacco Review of Systems Const Denies chills and Denies fever(s) Card Denies dyspnea Resp Denies dyspnea GI Denies nausea and Denies vomiting Skin/Breast Reports as per HPI Physical Exam Vital Signs: Last Vital Signs Pulse 89 03/12/23 15:04 BP 131/81 03/12/23 15:04 BMI result Body Mass Index 39.0 Const General: comfortable and no acute distress Nutritional Appearance: well nourished Orientation/consciousness: patient oriented x3 Limitations: ambulation with cane Resp Effort & Inspection: normal respiratory effort, no audible wheezes, no cough and no respiratory distress Neuro General: patient oriented x3 Extrem Other: Patient examined in the standing position, multiple areas of bruising which appeared to be associated with superficial varicosities. Palpable varicosities are also identified along the greater saphenous vein from the mid thigh down along the medial knee and calf. No skin ulceration, lipomodermal sclerosis or leg edema is appreciated. General: Yes normal to inspection Assessment & Plan Assessment & Plan (1) Leg pain, bilateral: Code(s): M79.604 - Pain in right leg; M79.605 - Pain in left leg Plan 57-year-old female patient presenting with complaints of bilateral leg pain, with evidence of superficial varicosities returning following her recent Doppler studies. Unfortunately the studies revealed no evidence of venous reflux to explain the patient's symptoms. No surgical intervention is recommended at this time. She should follow up as needed. Coding Level of Care Code Est Pt Level 3 (39381) Diagnoses Leg pain, bilateral M79.604; M79.605
[2023-03-12 15:04] VITALS: BP 131/81; PULSE 89; BMI 39.0
== END 2023-03-12 15:08 | disposition home or self-care (01) ==
PROVIDERS: PCP Internal Medicine; Visit Provider Surgery
DX: M79.604 Pain in right leg (principal); M79.605 Pain in left leg
CPT/HCPCS: 99213

== ENCOUNTER → 2023-03-12 14:42 | Outpatient (BNVA) | payer OTHER, SELFPAY | PROVIDERS: PCP Internal Medicine; Visit Provider Surgery | DX: M79.604 Pain in right leg (principal); M79.605 Pain in left leg | CPT/HCPCS: 99212 ==

== ENCOUNTER 2024-02-08 11:38 | Emergency (ER) | payer OTHER, SELFPAY ==
[2024-02-08 13:57] VITALS: BP 152/72; PULSE 72; RESP 20; TEMP 36.6; O2SAT 100; BMI 39.2
--- NOTE | 2024-02-08 13:59 | ED_ITS ---
HPI - General Adult General Chief complaint: Skin/Abscess/Foreign Body Stated complaint: Lump on back Time Seen by Provider: 02/08/24 16:48 Related Data Home Medications ?Medication ?Instructions ?Recorded ?Confirmed acetaminophen 500 mg tablet 500 mg PO Q6H PRN 07/10/21 03/13/23 alprazolam 1 mg tablet (Xanax) 1 mg PO TID PRN 07/10/21 03/13/23 citalopram 40 mg tablet 40 mg PO DAILY 07/10/21 03/13/23 cyanocobalamin (vitamin B-12) 50 50 mcg PO DAILY 07/10/21 03/13/23 mcg tablet dicyclomine 20 mg tablet 20 mg PO ONCE 07/10/21 03/13/23 famotidine 40 mg tablet 40 mg PO DAILY 07/10/21 03/13/23 hydroxyzine pamoate 50 mg capsule 50 mg PO BEDTIME 07/10/21 03/13/23 loperamide 2 mg capsule 4 mg PO Q6H PRN 07/10/21 03/13/23 montelukast 10 mg tablet 10 mg PO BEDTIME 07/10/21 03/13/23 multivitamin 1 tab PO DAILY 07/10/21 03/13/23 ondansetron HCl 4 mg tablet 4 mg PO Q6H 07/10/21 03/13/23 tizanidine 4 mg tablet 4 mg PO BEDTIME PRN 07/10/21 03/13/23 topiramate 100 mg tablet 100 mg PO DAILY 07/10/21 03/13/23 trazodone 50 mg tablet 100 mg PO DAILY PRN 07/10/21 03/13/23 albuterol sulfate 2.5 mg/3 mL mg inhalation 08/14/22 03/13/23 (0.083 %) solution for nebulization levothyroxine 112 mcg tablet mcg PO 08/14/22 03/13/23 Previous Rx's ?Medication ?Instructions ?Recorded sulfamethoxazole 800 1 tab PO Q12H #20 tabs 09/09/22 mg-trimethoprim 160 mg tablet (Bactrim DS) Allergies Allergy/AdvReac Type Severity Reaction Status Date / Time tramadol Allergy Mild Itching Verified 02/08/24 13:59 morphine [MORPHINE] Allergy Unknown SKIN RED Verified 02/08/24 13:59 [facility] Past Medical History Medical History Asthma History of anxiety Surgical History History of abdominoplasty History of back surgery History of left cataract surgery History of local excision of skin lesion (08/27/22) History of partial hysterectomy History of right cataract surgery Hx of cholecystectomy Hx of gastric bypass Family History Family History Mother Diabetes Asthma Hypertension Glaucoma Heart problem Father Liver cirrhosis Social History Social History Household Members: Children Household Members Other:: 2 sons Alcohol intake: never Patient Tobacco Use Status: Never used Tobacco Advance Directives: No Advance Directives Information Provided: Yes Physical Exam ED Vital Signs: Vital Signs - 24 hr 02/08/24 13:57 Temperature 97.8 F Pulse Rate 72 Respiratory Rate 20 Blood Pressure 152/72 H Pulse Oximetry 100 Oxygen Delivery Method Room Air BMI result Body Mass Index 39.2 Course Course Course Narrative: RME performed by Veronica Pickering PA-C. Patient is a 58 year old assigned female at presenting to the emergency department with a lump to her low back. Patient states that she had back surgery years ago and now has a lump where her surgical scar is that started 5 day ago and is getting worse. Detailed physical exam and review of systems are deferred to the emergency department clinician. Patient placed back in the waiting room pending room availability. Reevaluation(s) Reevaluation #1: [id number]-- I arrived to patient's room to evaluate patient. Patient crying, stating she needs to leave the ED as she recieved a call that her nephew suddenly on the medical floor. Patient declining to stay in the ED at this time and left without completing treatment. - carisa uptnam pa-c Discharge Plan Discharge Clinical Impression: Mass of skin of back Patient Disposition: Left W/O Completing Treatment Prescriptions: No Action sulfamethoxazole-trimethoprim [Bactrim DS] 800-160 mg tablet 1 tab PO Q12H Qty: 20 0RF acetaminophen 500 mg tablet 500 mg PO Q6H PRN Rx Instructions: take 2 tabs by mouth every 6 hours as needed for pain citalopram 40 mg tablet 40 mg PO DAILY cyanocobalamin (vitamin B-12) 50 mcg tablet 50 mcg PO DAILY multivitamin Tablet 1 tab PO DAILY dicyclomine 20 mg tablet 20 mg PO ONCE famotidine 40 mg tablet 40 mg PO DAILY hydroxyzine pamoate 50 mg capsule 50 mg PO BEDTIME loperamide 2 mg capsule 4 mg PO Q6H PRN montelukast 10 mg tablet 10 mg PO BEDTIME ondansetron HCl 4 mg tablet 4 mg PO Q6H tizanidine 4 mg tablet 4 mg PO BEDTIME PRN topiramate 100 mg tablet 100 mg PO DAILY trazodone 50 mg tablet 100 mg PO DAILY PRN alprazolam [Xanax] 1 mg tablet 1 mg PO TID PRN albuterol sulfate 2.5 mg /3 mL (0.083 %) solution for nebulization inhalation levothyroxine 112 mcg tablet PO Print Language: Lao
== END 2024-02-08 17:59 | disposition left against medical advice (07) ==
PROVIDERS: Emergency Provider Internal Medicine; PCP Internal Medicine
DX: R22.2 Localized swelling, mass and lump, trunk (principal)
CPT/HCPCS: 99281